=== PATIENT | female | born 1955 | race Caucasian/White ===

== ENCOUNTER 2023-02-16 06:15 | Day surgery (SDC) | payer OTHER ==
[~2023-02-16] VITALS: Ht 152.4 cm; Wt 66.2 kg
[2023-02-16] MEDS ORDERED: LIDOCAINE 2% 100 MG/5 ML UJET TP ONE (08:11)
[2023-02-16] MEDS ORDERED: fentaNYL citrate 0.05 MG/ML VIAL ONE (08:11)
[2023-02-16] MEDS ORDERED: MIDAZOLAM 2 MG/2 ML VIAL ONE (08:11)
[2023-02-16] MEDS ORDERED: KETOROLAC 30 MG/ML VIAL ONE (08:24)
[2023-02-16] MEDS ORDERED: KETOROLAC 30 MG/ML VIAL IVP ONE (08:55)
== END 2023-02-16 09:15 | disposition home or self-care (01) ==
LOC: MDS 06:15 → MMU 06:27 → MDS 09:15
PROVIDERS: ATTEND Internal Medicine Gastroenterology
DX: Z12.11 Encounter for screening for malignant neoplasm of colon (principal); E78.00 Pure hypercholesterolemia, unspecified; Z90.710 Acquired absence of both cervix and uterus
CPT/HCPCS: 45378; J1885; J2250; J3010